=== PATIENT | female | born 1995 | race Caucasian/White ===

== ENCOUNTER 2020-07-30 01:40 | Inpatient (IN) ==
[2020-07-30 02:04] LABS: BILIRUBIN,URINE NEGATIVE (NEGATIVE); BLOOD/HEMOGLOBIN,URINE 1+ (NEGATIVE); GLUCOSE, URINE NEGATIVE (NEGATIVE); KETONES,URINE NEGATIVE (NEGATIVE); LEUKOCYTE ESTERASE ,URINE 3+ (NEGATIVE); NITRITES,URINE NEGATIVE (NEGATIVE); PH,URINE 6.5 (5.0 - 8.0); PROTEIN,URINE 2+ (NEGATIVE); UROBILINOGEN,URINE NORMAL (NORMAL)
[2020-07-30 02:07] LABS: AMNISURE ROM TEST THERE IS A RUPTURE (NO RUPTURE)
[2020-07-30 02:09] LABS: APPEARANCE,URINE TURBID (CLEAR); COLOR,URINE YELLOW (YELLOW)
[2020-07-30 02:12] LABS: BACTERIA,URINE 1+ /HPF (NEGATIVE); MUCUS,URINE FEW /HPF (NEGATIVE); RBC,URINE 0-2 /HPF (0-3); SQUAMOUS EPITHELIAL CELL,UR NUMEROUS /HPF (NEGATIVE)
[2020-07-30] MEDS ORDERED: D5 1/2 NS 1000 ML 1,000 ML IV ONE ×2 (02:14→02:36)
[2020-07-30] MEDS ORDERED: PITOCIN ONE (02:36)
[2020-07-30] MEDS ORDERED: LR 1000 ML IV 1,000 ML IV ONE (02:36)
[2020-07-30] MEDS ORDERED: BETADINE SOLN ONE (02:36)
[2020-07-30 02:37] VITALS: BMI 36.1
[2020-07-30] MEDS ORDERED: D5 1/2 NS 1L W PITOCIN 20 UNITS/L 20 UNITS/1,000 ML BAG IV ONE (02:37)
[2020-07-30] MEDS ORDERED: D5LR 1L W PITOCIN 10 UNITS/L 10 UNITS/1,000 ML BAG IV ONE (02:37)
[2020-07-30] MEDS ORDERED: D5 1/2 NS 1000 ML 1,000 ML IV SCH ×2 (03:00→04:00)
[2020-07-30] MEDS ORDERED: D5LR 1L W PITOCIN 10 UNITS/L 10 UNITS/1,000 ML BAG IV PRN (03:27)
[2020-07-30] MEDS ORDERED: PHENERGAN INJ 25 MG IM PRN ×2 (03:27→11:16)
[2020-07-30] MEDS ORDERED: MORPHINE SULFATE INJ 2 MG INJ IVP PRN (03:27)
[2020-07-30] MEDS ORDERED: PITOCIN IVP ONE (03:27)
[2020-07-30] MEDS ORDERED: STADOL INJ IVP PRN (03:31)
[2020-07-30] MEDS ORDERED: FENTANYL INJ 100 mcg ONE (03:39)
[2020-07-30] MEDS ORDERED: FENTANYL 2 mcg/mL-ROPIV 0.1%-NS EPIDURAL 200 ML EPI ONE (03:40)
[2020-07-30] MEDS: REGLAN INJ 10 MG VIAL IVP PRN ×2 (03:50→09:50)
--- NOTE | 2020-07-30 11:16 | DR.OB ---
OB Quick Note - Assessment/Plan Assessment/Plan: Delivery Note [employer] 07/30/20 at 11:01am Patient complete and pushing. Head delivered over intact perineum. Nuchal cord x 1 reduced. Nose and mouth bulb suctioned. Body delivered over intact perineum. Cord clamped x 2 and cut. handed to attendant. Cord sent for gases. Placenta delivered spontaneously / intact / 3 vessel cord. No CVX / vaginal / perineal tears noted. Viable male , VTX/OA, wt=7'5" and 9/9, stable to NBN. Mother stable to RR. CQN=[id number].
[2020-07-30] MEDS ORDERED: DERMOPLAST PAIN RELIEF SPRAY TOP PRN (12:08)
[2020-07-30] MEDS ORDERED: AMBIEN PO PRN (12:08)
[2020-07-30] MEDS ORDERED: MILK OF MAGNESIA PO PRN (12:08)
[2020-07-30] MEDS ORDERED: ADACEL or BOOSTRIX TDaP VACCINE IM ONE (12:08)
[2020-07-30] MEDS: MOTRIN TAB 800 MG PO PRN ×2 (13:30→21:14)
[2020-07-30] MEDS: D5 1/2 NS 1000 ML 1,000 ML with PITOCIN 20 UNITS IV SCH ×2 (21:04)
[2020-07-31 04:28] LABS: HEMATOCRIT 29.8 % (36.0-47.0); HEMOGLOBIN 10.3 g/dL (12.0-16.0)
[2020-07-31] MEDS: D5 1/2 NS 1000 ML 1,000 ML with PITOCIN 20 UNITS IV SCH ×4 (04:55→15:45)
[2020-07-31] MEDS: MOTRIN TAB 800 MG PO PRN (04:55)
[2020-07-31 08:13] VITALS: BP 134/85
[2020-07-31] MEDS ORDERED: PRENATAL PLUS PO SCH (09:00)
== END 2020-07-31 14:30 | disposition home or self-care (01) | DRG 807 ==
LOC: ER 01:41 → LD 03:32 → MED/SURG 12:00
PROVIDERS: ADMIT Specialist; ATTEND Specialist
DX: Z23 Encounter for immunization; Z37.0 Single live birth; Z3A.38 38 weeks gestation of pregnancy; O41.03X0 Oligohydramnios, third trimester, not applicable or unspecified